=== PATIENT | male | born 1985 | race Caucasian/White ===

== ENCOUNTER → 2019-10-04 09:15 | Outpatient (CLI) | payer BC, SELFPAY ==
--- NOTE | 2019-10-04 09:26 | US_ITS ---
PROCEDURE: US ABDOMEN LIMITED CLINICAL INDICATION: RUQ PAIN Right upper quadrant pain with nausea and fever COMPARISON: No exams were available for comparison FINDINGS: PANCREAS: Unremarkable. No obvious mass or abnormal fluid collection. No ductal dilatation LIVER: No focal liver lesions demonstrated. Homogeneous echogenicity. No intrahepatic biliary ductal dilatation evident. There is appropriate direction of blood flow within a non dilated portal vein RIGHT KIDNEY: Unremarkable. Normal size and echogenicity. No hydronephrosis GALLBLADDER: No gallstones, gallbladder wall thickening, pericholecystic fluid, or biliary dilatation. Gallbladder is mildly distended at 10 by 3.7 cm IMPRESSION: Mildly distended gallbladder otherwise negative right upper quadrant ultrasound. No gallstones apparent Dictated by: Juan Antonio Pastor MD 10/04/2019 17:37 Electronically signed by Juan Antonio Pastor MD in [place] 10/04/2019 17:37
== END ==
PROVIDERS: PCP Family Medicine; Referring Provider Family Medicine; Visit Provider Family Medicine
DX: R10.11 Right upper quadrant pain (principal)
CPT/HCPCS: 76705

== ENCOUNTER → 2019-10-14 10:16 | Outpatient (CLI) | payer BC, SELFPAY ==
--- NOTE | 2019-10-14 10:18 | NM_ITS ---
PROCEDURE: NM HEPATOBILIARY WO PHARM CLINICAL INDICATION: RUQ PAIN COMPARISON: No exams were available for comparison TECHNIQUE: DOSE: 8.09 mCi technetium Choletec FINDINGS: Homogeneous activity is present within the hepatic parenchyma. There is delayed visualization of the gallbladder. The study is carried out for 3 hours the. The gallbladder is only visualized at 2 hours and 30 minutes. CCK could not be performed due to the faint activity in the gallbladder with most of the activity at that time within the small bowel. The small bowel is visualized by 15 minutes. IMPRESSION: 1. Delayed visualization of the gallbladder consistent with chronic inflammatory changes of the cystic duct 2. No evidence of common bile duct obstruction Dictated by: Juan Antonio Pastor MD 10/14/2019 17:43 Electronically signed by Juan Antonio Pastor MD in [place] 10/14/2019 17:43
== END ==
PROVIDERS: PCP Family Medicine; Visit Provider Family Medicine
DX: R10.11 Right upper quadrant pain (principal)
CPT/HCPCS: 78226; A9537

== ENCOUNTER → 2019-10-26 14:35 | Outpatient (CLI) | payer BC, SELFPAY ==
[2019-10-26 15:03] LABS: Basophils % 0.6 % (0.1-2.0); Eosinophils # 0.4 K/mm3 (0.0-0.4); Eosinophils % 4.9 % (0.1-12.0); Hemoglobin 14.2 g/dL (14.1-18.0); Lymphocytes # 2.3 K/mm3 (0.7-4.5); Lymphocytes % 30.9 % (10-50); Mean Corpuscular HGB Conc 32.3 g/dL (31.8-35.4); Mean Corpuscular Hemoglobin 29.4 pg (27.0-31.2); Mean Platelet Volume 8.5 fl (7.4-10.4); Monocytes # 0.5 K/mm3 (0.1-1.0); Monocytes % 6.9 % (1.7-9.3); Neutrophils # 4.1 K/mm3 (1.8-7.8); Neutrophils % 56.6 % (37.0-80.0); Platelet Count 283 K/mm3 (142-424); Red Blood Count 4.84 M/mm3 (4.60-6.20); Red Cell Distribution Width 12.3 % (11.5-17.5); White Blood Count 7.3 K/mm3 (4.8-10.8)
[2019-10-26 16:00] LABS: Alanine Aminotransferase 41 U/L (12-78); Albumin Level 4.2 gm/dL (3.4-5.0); Albumin/Globulin Ratio 1.4 (1.1-1.8); Alkaline Phosphatase 62 U/L (46-116); Anion Gap 10.5 mEq/L (5-15); Aspartate Amino Transferase 23 U/L (15-37); Bilirubin,Total 0.4 mg/dL (0.2-1.0); Blood Urea Nitrogen 12 mg/dL (7-18); Calcium 9.2 mg/dL (8.5-10.1); Carbon Dioxide 30 mmol/L (21.0-32.0); Chloride 104 mmol/L (98-107); Creatinine,Serum 0.97 mg/dL (0.70-1.30); Estimated Glomerular Filt Rate 89 ml/min (>60); GFR (African American) 108 ML/MIN (>60); Glucose 75 mg/dL (74-106); Potassium 4.5 mmoL/L (3.5-5.1); Sodium 140 mmol/L (136-145); Total Protein,Serum 7.2 gm/dL (6.4-8.2)
== END ==
PROVIDERS: Visit Provider Surgery
DX: R10.11 Right upper quadrant pain (principal)
CPT/HCPCS: 36415; 80053; 85025

== ENCOUNTER 2020-09-06 22:03 | Emergency (ER) | payer BC, SELFPAY ==
[2020-09-06 22:14] VITALS: BP 139/79; PULSE 57; RESP 16; TEMP 36.9; O2SAT 99; BMI 25.0
--- NOTE | 2020-09-06 22:23 | CT_ITS ---
PROCEDURE: CT ABDOMEN PELVIS W CON CLINICAL INDICATION: upper abd pain w/N/V Abdominal pain with nausea and vomiting COMPARISON: CT CT ABDOMEN PELVIS W CON from 09/28/2019 TECHNIQUE: IV Contrast: 75ML OPTIRAY 350 Oral Contrast None Axial images obtained with sagittal and coronal reformats. All CT scans at the facility use one or more dose reduction, viz: automated exposure control, ma/kV adjustment per patient size (including targeted exams where dose is matched to indication, i.e. head), or iterative reconstruction technique. FINDINGS: LOWER THORAX: The cluster of nodules is present in the left lower lobe posterior laterally unchanged. ABDOMEN & PELVIS: The liver, spleen, adrenal glands, the pancreas, and kidneys have an unremarkable appearance. There is a circum aortic left renal vein. There is a mild amount of retained colonic feces on the right. No intestinal obstruction or free air is evident. No evidence of appendicitis. There is mild thickening of the descending colon sigmoid and rectum which could be due to nondistention or colitis. The no evidence of diverticulitis. No acute bony anomaly. IMPRESSION: 1. Mild thickening of the descending colon, sigmoid colon and rectum which may only be due to nondistention. Mild colitis is also consideration. 2. Otherwise negative Dictated by: Juan Antonio Pastor MD 09/07/2020 06:55 Juan Antonio Pastor MD in [place] 09/07/2020 06:55
[2020-09-06 22:34] LABS: Basophils % 0.3 % (0.1-2.0); Eosinophils # 0.2 K/mm3 (0.0-0.4); Eosinophils % 1.5 % (0.1-12.0); Hematocrit 47.2 % (42.0-52.0); Hemoglobin 14.9 g/dL (14.1-18.0); Lymphocytes # 1.9 K/mm3 (0.7-4.5); Lymphocytes % 13.5 % (10-50); Mean Corpuscular HGB Conc 31.5 g/dL (31.8-35.4); Mean Corpuscular Hemoglobin 29.2 pg (27.0-31.2); Mean Corpuscular Volume 92.7 fl (80-94); Mean Platelet Volume 7.8 fl (7.4-10.4); Monocytes # 0.7 K/mm3 (0.1-1.0); Monocytes % 4.7 % (1.7-9.3); Neutrophils # 11.1 K/mm3 (1.8-7.8); Platelet Count 307 K/mm3 (142-424); Red Blood Count 5.09 M/mm3 (4.60-6.20); Red Cell Distribution Width 12.7 % (11.5-17.5); White Blood Count 13.9 K/mm3 (4.8-10.8)
[2020-09-06 22:38] LABS: Potassium 3.9 mmoL/L (3.5-5.1); Sodium 139 mmol/L (136-145)
[2020-09-06 22:39] LABS: Chloride 99 mmol/L (98-107)
[2020-09-06 22:40] LABS: Alanine Aminotransferase 20 U/L (12-78); Amylase 81 U/L (30-110); Anion Gap 15.9 mEq/L (5-15); Aspartate Amino Transferase 30 U/L (17-59); Blood Urea Nitrogen 13 mg/dl (9-20); Carbon Dioxide 28 mmol/L (22.0-30.0); Creatinine Clearance Estimated 124 mL/min (50-200); Estimated Glomerular Filt Rate 86 ml/min (>60); GFR (African American) 103 ML/MIN (>60)
[2020-09-06 22:41] LABS: Albumin Level 4.9 g/dl (3.5-5.0); Albumin/Globulin Ratio 1.6 (1.1-1.8); Alkaline Phosphatase 65 U/L (38-126); Bilirubin,Total 0.7 mg/dl (0.2-1.3); Calcium 9.7 mg/dl (8.4-10.2); Globulin 3.1 g/dL (1.3-3.2); Glucose 111 mg/dl (74-100); Lipase 175 U/L (23-300)
[2020-09-06 22:57] LABS: Erythrocyte Sedimentation Rate 1 mm/hr (0-15)
--- NOTE | 2020-09-06 23:14 | HMH.EDNVD ---
ED Disposition Clinical Impression: Abdominal pain Qualifiers: Abdominal location: epigastric Qualified Code(s): R10.13 - Epigastric pain Disposition: Home, Self-Care Condition on Discharge: Fair Instructions: DI for Acute Abdomen Additional Instructions: fluids and call pcp in am Referrals: Edgardo Pérez MD [Primary Care Provider] - - Critical Care Critical Care Time: No Attestation: On 09/06/20, the high probability of a clinically significant, sudden or life threatening deterioration of the following system(s) required my full and direct attention, intervention and personal management. The time I documented below is in addition to time spent performing reported procedures but includes the following listed in this critical care notation. Medical Decision Making - Medical Records Medical records reviewed: Yes: I reviewed the patient's medical records. - [place] Inquiry Pt receiving controlled substance: No Vital Signs: 09/06/20 22:14 Temperature 98.5 F Temperature Source Oral Pulse Rate [Right] 57 L Respiratory Rate 16 Blood Pressure [Right Arm] 139/79 Blood Pressure Mean [Right Arm] 99 Blood Pressure Source [Right Arm] Automatic Cuff Blood Pressure Position [Right Arm] Sitting 02 Sat by Pulse Oximetry 99 Oxygen Delivery Method Room Air - Lab Data Lab results reviewed: Yes: I reviewed the patient's lab results. Lab Results 09/06/20 22:20: WBC 13.9 H, RBC 5.09, Hgb 14.9, Hct 47.2, MCV 92.7, MCH 29.2, MCHC 31.5 L, RDW 12.7, Plt Count 307, MPV 7.8, Neut % (Auto) 80.0, Lymph % (Auto) 13.5, [place] % (Auto) 4.7, Eos % (Auto) 1.5, Baso % (Auto) 0.3, Neut # (Auto) 11.1 H, Lymph # (Auto) 1.9, [place] # (Auto) 0.7, Eos # (Auto) 0.2, Baso # (Auto) 0.0, ESR 1 09/06/20 22:20: Sodium 139, Potassium 3.9, Chloride 99, Carbon Dioxide 28, Anion Gap 15.9 H, BUN 13, Creatinine 1.00, Estimated Creat Clear 124, Estimated GFR 86, Est GFR ( Amer) 103, Glucose 111 H, Calcium 9.7, Total Bilirubin 0.7, AST 30, ALT 20, Alkaline Phosphatase 65, C-Reactive Protein 2.0, Total Protein 8.0, Albumin 4.9, Globulin 3.1, Albumin/Globulin Ratio 1.6, Amylase 81, Lipase 175 Result diagrams: 09/06/20 22:20 09/06/20 22:20 Orders (Tests/Meds): ED MEDICATIONS Generic Name Dose Route Start Last Admin Trade Name Freq PRN Reason Stop Dose Admin Sodium Chloride 1,000 mls @ 999 mls/hr 09/06/20 22:30 09/06/20 22:29 Sod Chlor 0.9% 1000ml Bag IV 09/06/20 23:30 999 mls/hr .Q1H1M JASON Administration Sodium Chloride 8 ml 09/06/20 22:23 Sodium Chloride 0.9% 10ml Vial IV 10/06/20 22:22 NEEDED PRN dilute pepcid Discontinued Medications Generic Name Dose Route Start Last Admin Trade Name Freq PRN Reason Stop Dose Admin Famotidine 20 mg 09/06/20 22:23 09/06/20 22:28 Famotidine 20mg/2ml Vial IV 09/06/20 22:24 20 mg ONCE ONE Administration Ketorolac Tromethamine 30 mg 09/06/20 22:23 09/06/20 22:28 Ketorolac 30mg/Ml Vial IV 09/06/20 22:24 30 mg ONCE ONE Administration Metoclopramide HCl 10 mg 09/06/20 22:23 09/06/20 22:28 Metoclopramide Hcl 10mg/2ml Vial IVP 09/06/20 22:24 10 mg ONCE ONE Administration Ondansetron HCl 4 mg 09/06/20 22:23 09/06/20 22:28 Ondansetron 4mg/2ml Vial IV 09/06/20 22:24 4 mg ONCE ONE Administration ORDERS Category Date Time Status CT abdomen pelvis w con Stat Cat Scan 09/06/20 22:23 Ordered - CT Data CT Scan: Abdomen, Pelvis Time Received: 23:[address] Reviewed: Yes: I have viewed the radiologist's interpretation Preliminary Findings: Abnormal (possible colitis ) - Reevaluation(s) Time: 23:46 Reevaluation #1: doubt colitis as no pain in colon area - declined admit Nausea/Vomiting/Diarrhea HPI - General Chief complaint: Abdominal Pain Stated complaint: Vomiting,ABD Pain Time Seen by Provider: 09/06/20 22:30 Mode of Arrival: Ambulatory Source of Information: Patient, Spouse, Medical Record Limitations: No Limit
[2020-09-06 23:37] VITALS: BP 127/62; PULSE 68; RESP 16; O2SAT 95
[2020-09-07 00:19] VITALS: BP 132/65; PULSE 61; RESP 16; TEMP 36.7; O2SAT 96
== END 2020-09-07 00:24 | disposition home or self-care (01) ==
PROVIDERS: Emergency Provider Emergency Medicine; PCP Family Medicine
DX: R10.13 Epigastric pain (principal); F17.210 Nicotine dependence, cigarettes, uncomplicated
CPT/HCPCS: 74177; 80053; 82150; 83690; 85025; 85651; 86140; 96365; 96375; 99283; J2405; Q9967

== ENCOUNTER 2020-12-30 19:11 | Emergency (ER) | payer BC, SELFPAY ==
[2020-12-30 19:20] VITALS: BP 123/74; PULSE 70; RESP 18; TEMP 37.1; O2SAT 98; BMI 25.2
--- NOTE | 2020-12-30 19:42 | HMH.EDUTC ---
[facility] [place] Clinical Impression: Upper respiratory infection, viral Disposition: Home, Self-Care Condition on Discharge: Good Instructions: DI for COVID-19 (Suspected or Confirmed ), How to Care for Someone with COVID-19, Preventing the Spread of Coronavirus Discharge Instructions Additional Instructions: No sign of a bacterial infection. Likely viral. Viruses can take 7-14 days to run their course. Nasal saline and bulb syringe or nose Marilyn to remove nasal drainage to help with nasal congestion. Hard to eat, drink, sleep with nasal congestion so important to keep this cleaned out. Monitor temp. Tylenol or Motrin as needed for pain or fever Encourage fluids, water, Gatorade, Powerade, Pedialyte if infant/toddler/child Warm salt water gargles Warm fluids Sore throat lozenges Sleep elevated Humidifier/vaporizer Your covid swab was sent . self isolate until covid test results are known to be negative Follow-up immediately for new or worsening symptoms or no noticeable improvement over the next 48-72 hours. Referrals: Edgardo Pérez MD [Primary Care Provider] - Time of Disposition: 19:54 Medical Decision Making - [place] Inquiry Pt receiving controlled substance: No Vital Signs: 12/30/20 19:20 Temperature 98.7 F Temperature Source Oral Pulse Rate [Right Brachial] 70 Respiratory Rate 18 Blood Pressure [Right Arm] 123/74 Blood Pressure Mean [Right Arm] 90 Blood Pressure Source [Right Arm] Automatic Cuff Blood Pressure Position [Right Arm] Sitting 02 Sat by Pulse Oximetry 98 Oxygen Delivery Method Room Air Orders (Tests/Meds): ORDERS Category Date Time Status Covid-19 Nasal PCR ([facility]) Routine Lab 12/30/20 19:13 Received [facility] [place] - General Chief complaint: [facility] Stated complaint: sore throat Time Seen by Provider: 12/30/20 19:42 Mode of Arrival: Ambulatory Source of Information: Patient Limitations: No Limitations Description of Symptoms (Recalled from Triage Doc. by RN): REQUESTING COVID TEST. C/O CHEST CONGESTION, FEVER, AND SNEEZING X 3 DAYS HEENT Symptoms (Recalled from RN notes): No Resp Symptoms (Recalled from RN notes): No Skin Symptoms (Recalled from RN notes): No MS Symptoms (Recalled from RN notes): No Functional Status (Recalled from RN notes): WNL - History of Present Illness Provider Complaint: 35 yr old male presents for sore throat, nasal congestion, and body aches for a few days and wants to make sure he does not have covid. - Related Data Home Medications Medication Instructions Recorded Confirmed No Known Home Medications 11/30/19 11/30/19 Allergies Allergy/AdvReac Type Severity Reaction Status Date / Time No Known Allergies Allergy Verified 11/30/19 10:03 - Worker's Comp Is this a Worker's Comp case?: No [facility] History - Hepatitis A Screen Drug use history?: No High risk sexual behaviors?: No History of sexually transmitted infection?: No Currently employed?: No Childcare worker?: No Do you have indoor plumbing?: Yes Do you have electricity?: Yes Attestation statement:: This patient has been screened for Hepatitis A risk factors. I have reviewed the patient's past medical history: Yes Medical History: Denies:: Cancer, Diabetes Mellitus Type 1, Diabetes Mellitus Type 2, Internal Pacemaker, MRSA, Seizures Other Medical History: Denies: Blood Transfusion Reaction Other Surgeries: Yes: No Previous Surgery, Cholecystectomy. No: Pacemaker Amputation: No Fractures: No - Social History Smoking Status: Current every day smoker Tobacco Type: cigarettes # Packs/Day (cigarettes): 1 Alcohol Intake: never Alcohol Intake Frequency:: a few times a month Substance Use Type: other Occupational Status: other Housing: house Household Members: spouse, family Family Hx:: No significant family history ROS Obtained: Yes Systems reviewed as appropriate & no additional complaints - Constitutional Constitutional: Reports system review
[2020-12-30 19:53] LABS: UTC Influenza A Antigen Negative (Negative)
[2020-12-30 19:54] VITALS: BP 123/74; PULSE 70; RESP 18; TEMP 37.1; O2SAT 98
[2020-12-30 19:54] LABS: UTC Influenza B Antigen Negative (Negative)
== END 2020-12-30 19:58 | disposition home or self-care (01) ==
PROVIDERS: Emergency Provider Nurse Practitioner Family; PCP Family Medicine
DX: Z20.822 Contact with and (suspected) exposure to COVID-19 (principal); J06.9 Acute upper respiratory infection, unspecified; F17.210 Nicotine dependence, cigarettes, uncomplicated
CPT/HCPCS: 87804; 99202; G0463; U0003

== ENCOUNTER 2022-09-15 02:48 | Emergency (ER) | payer BC, SELFPAY ==
[2022-09-15 02:49] VITALS: BP 148/63; PULSE 94; RESP 26; TEMP 36.8; O2SAT 97; BMI 25.7
--- NOTE | 2022-09-15 02:54 | XR_ITS ---
PROCEDURE INFORMATION: Exam: XR Chest Exam date and time: 09/15/2022 2:57 AM Age: 36 years old Clinical indication: Sternal or substernal pain; Additional info: Chest pain TECHNIQUE: Imaging protocol: Radiologic exam of the chest. Views: 2 views. COMPARISON: No relevant prior studies available. FINDINGS: Lungs: Mild underinflation. Minimal patchy opacity LEFT lung base. Pleural spaces: No significant pleural effusion. No pneumothorax. Heart/Mediastinum: No cardiomegaly. Bones/joints: No displaced fracture. Soft tissues: Unremarkable. Intraperitoneal space: Surgical clips within RIGHT upper quadrant. IMPRESSION: LEFT basilar atelectasis versus early pneumonia. Radiographic follow-up is recommended.
--- NOTE | 2022-09-15 03:00 | ECG_ITS ---
APPROVED REPORT Exam: Resting ECG HR:83 bpm ECG Measurements Heart Rate 83 AXES ID 138 P 64 QRSd 94 QRS 77 QT 339 T 72 QTc 379 Conclusion SINUS RHYTHM NORMAL ECG UNCONFIRMED REPORT Electronically signed by : Jem Schulte MD 09/15/2022 16:36:36
[2022-09-15 03:02] LABS: Basophils # 0.1 K/mm3 (0-0.2); Basophils % 0.6 % (0.1-2.0); Eosinophils # 0.2 K/mm3 (0.0-0.4); Eosinophils % 1.6 % (0.1-12.0); Hematocrit 47.1 % (42.0-52.0); Lymphocytes # 3.2 K/mm3 (0.7-4.5); Lymphocytes % 20.7 % (10-50); Mean Corpuscular HGB Conc 31.7 g/dL (31.8-35.4); Mean Corpuscular Hemoglobin 30.3 pg (27.0-31.2); Mean Corpuscular Volume 95.5 fl (80-94); Mean Platelet Volume 7.7 fl (7.4-10.4); Monocytes # 0.8 K/mm3 (0.1-1.0); Monocytes % 5.3 % (1.7-9.3); Neutrophils # 11.2 K/mm3 (1.8-7.8); Neutrophils % 71.8 % (37.0-80.0); Platelet Count 333 K/mm3 (142-424); Red Blood Count 4.94 M/mm3 (4.60-6.20); Red Cell Distribution Width 13.3 % (11.5-17.5); White Blood Count 15.6 K/mm3 (4.8-10.8)
--- NOTE | 2022-09-15 03:04 | HMH.EDGENADL ---
Discharge Plan Disposition Patient Disposition: Home, Self-Care Condition: Fair Prescriptions Prescriptions: New amoxicillin 500 mg capsule 1,000 mg PO TID Qty: 30 0RF ibuprofen 600 mg tablet 600 mg PO Q8H PRN (Reason: pain) Qty: 30 0RF Referrals Follow up/Referrals: Provider,Referral, MD [Primary Care Provider] - See instructions Activity Restrictions/Add. Instructions Additional Instructions/Restrictions: You have been evaluated for left-sided chest pain. Diagnosed with a pneumonia in the upper lobe. Your CT scan also showed pulmonary nodules. It is very important that you follow-up with your primary care doctor for repeat CT scan in the next few months. Take antibiotics as prescribed. Stay hydrated. Rest and fluids. Follow-up with your PCP in 1 to 2 days for symptom recheck. Return to the emergency department for any new or worsening symptoms, difficulty breathing, chest pain, other concerns Clinical Impressions Clinical Impression: Left upper lobe pneumonia, Chest pain Instructions Patient Instructions: DI for Pneumonia -- Adult, DI for Atypical Chest Pain Discharge ED Provider: Alma Rosa Kline Adult HPI General Chief complaint: Chest Pain Stated complaint: Chest Pain Time Seen by Provider: 09/15/22 02:53 Mode of Arrival: Ambulatory Source of Information: Patient Limitations: No Limitations History of Present Illness HPI narrative: 36-year-old male presenting to the emergency department with chest pain. Pain woke him from sleep just prior to arrival. Is described as sharp, located on the left side of the chest. Radiates slightly toward the epigastrium. Has been constant since onset. No radiation to the jaw, arm, back. It is located in the front of the chest. Hurts to take a deep breath. No associated nausea, diaphoresis. No numbness, weakness, tingling in his arms or legs. He has never had pain like this before. Denies recent exertional chest pain. Denies history of reflux or ulcers. [place] well throughout the day today. No medications prior to arrival. Related Data Previous Rx's Medication Instructions Recorded amoxicillin 500 mg capsule 1,000 mg PO TID #30 caps 09/15/22 ibuprofen 600 mg tablet 600 mg PO Q8H PRN pain #30 tabs 09/15/22 Allergies Allergy/AdvReac Type Severity Reaction Status Date / Time No Known Allergies Allergy Verified 11/30/19 10:03 [facility] Social History Smoking Status: Current every day smoker tobacco type: cigarettes packs per day: 1 second hand exposure: Yes alcohol intake: never substance use type: other current occupational status: other Travel in the last 8 weeks: None household members: spouse and family housing: house caffeine: Yes ROS Obtained: Yes All systems reviewed & no additional complaints except as documented Constitutional Constitutional: Reports body ache, Denies chills, Denies fever(s) and Denies headache(s) Eyes Eyes: Denies blurry vision and Denies change in vision ENT Ears, Nose, Mouth, and Throat: Denies headache(s), Denies neck pain, Denies sore throat and Denies throat swelling Cardiovascular Cardiovascular: Reports chest pain, Denies dyspnea, Denies irregular heart rhythm and Denies palpitations Respiratory Respiratory: Denies cough and Denies dyspnea Gastrointestinal Gastrointestingal: Denies abdominal pain, nausea or vomiting Musculoskeletal Musculoskeletal: Denies back pain, Denies myalgias, Denies neck pain and Denies numbness Integumentary/Breasts Skin/Breast: Denies rash Neurologic Neurologic: Denies headache(s) and Denies numbness Endocrine Endocrine: Denies palpitations Allergic/Immunologic Allergic/Immunologic: Denies throat swelling Physical Exam General General appearance: alert and in no apparent distress Head Head exam: atraumatic and normocephalic Eye Eye exam: Present normal appearance, PERRL and EOMI Neck Neck exam: Present normal inspection; Absent tenderness C
--- NOTE | 2022-09-15 03:06 | PC.NURSE ---
PT gone to RAD for CXR
[2022-09-15 03:07] LABS: MANUAL DIFFERENTIAL MANUAL DIFFERENTIAL (MANUAL DIFF)
[2022-09-15 03:08] LABS: Anion Gap 16.1 mEq/L (5-15); Blood Urea Nitrogen 13 mg/dl (9-20); Calcium 9.1 mg/dl (8.4-10.2); Carbon Dioxide 29 mmol/L (22.0-30.0); Chloride 96 mmol/L (98-107); Creatinine Clearance Estimated 124 mL/min (50-200); Estimated Glomerular Filt Rate 85 ml/min (>60); GFR (African American) 102 ML/MIN (>60); Glucose 128 mg/dl (74-100); Lipase 168 U/L (23-300); Potassium 4.1 mmoL/L (3.5-5.1); Sodium 137 mmol/L (136-145)
--- NOTE | 2022-09-15 03:12 | PC.NURSE ---
Pt back from RAD
[2022-09-15 03:21] LABS: Troponin I < 0.01 ng/ml (0.00-0.034)
[2022-09-15 03:33] LABS: Eosinophils % 1 % (0-3); Lymphocytes % 17 % (10-50); Monocytes % 2 % (2-9); Neutrophils % 76 % (42-76); Platelet Estimate Normal; RBC Morphology Normal; Total Cells Counted 100
--- NOTE | 2022-09-15 03:44 | PC.NURSE ---
Dr. Kline at
--- NOTE | 2022-09-15 03:45 | CT_ITS ---
PROCEDURE INFORMATION: Exam: CTA Chest With Contrast Exam date and time: 09/15/2022 4:16 AM Age: 36 years old Clinical indication: Sternal or substernal pain; Additional info: Pain with inspiration, dyspnea TECHNIQUE: Imaging protocol: Computed tomographic angiography of the chest with contrast. 3D rendering (Not supervised by radiologist): MIP and/or 3D reconstructed images were created by the technologist. Radiation optimization: All CT scans at this facility use at least one of these dose optimization techniques: automated exposure control; mA and/or kV adjustment per patient size (includes targeted exams where dose is matched to clinical indication); or iterative reconstruction. Contrast material: ISOVUE 370; Contrast volume: 70 ml; Contrast route: INTRAVENOUS (IV); COMPARISON: CR XR CHEST 2V 09/15/2022 2:57 AM FINDINGS: Pulmonary arteries: No definite pulmonary embolism. Aorta: Unremarkable. No aneurysm. Lungs: Minimal atelectasis/scarring. Few areas of mucous plugging within LEFT upper and lower lobes. Mild focal patchy/ confluent groundglass/alveolar opacities within lingular segment of LEFT upper lobe. Few calcified granulomas. Few noncalcified nodules and/or focal scarring, up to 0.3 cm. Pleural spaces: No significant pleural effusion. No pneumothorax. Heart: No cardiomegaly. No pericardial effusion. Lymph nodes: Calcified hilar lymph nodes. Spleen: Several calcifications. Bones/joints: No acute fracture. Soft tissues: Minimal gynecomastia. Small calcification or clip within LEFT axilla. IMPRESSION: 1. No definite CT evidence of pulmonary embolism. 2. Probable LEFT upper lobe pneumonia. Followup to resolution to exclude underlying pathology. 3. Pulmonary nodules. For patients at low risk (minimal or absent history of smoking and of other known risk factors), no routine follow-up is indicated. For patients at high risk (history of smoking or of other known risk factors), consider optional CT at 12 months. (james Dunaway al., Fleischner Society, 2017)
[2022-09-15 04:00] VITALS: BP 116/53; PULSE 88; RESP 22; O2SAT 97
[2022-09-15 04:30] VITALS: BP 129/63; PULSE 89; RESP 16; O2SAT 98
--- NOTE | 2022-09-15 04:33 | PC.NURSE ---
pt refused to have covid/flu test
[2022-09-15 05:12] VITALS: BP 129/63; PULSE 89; RESP 18; TEMP 36.6; O2SAT 99
[2022-09-15 05:39] LABS: Troponin I < 0.01 ng/ml (0.00-0.034)
== END 2022-09-15 05:51 | disposition home or self-care (01) ==
PROVIDERS: Emergency Provider Emergency Medicine
DX: J18.1 Lobar pneumonia, unspecified organism (principal); F17.210 Nicotine dependence, cigarettes, uncomplicated; Z79.1 Long term (current) use of non-steroidal anti-inflammatories (NSAID)
CPT/HCPCS: 71046; 71275; 80048; 83690; 84484; 85007; 85025; 93005; 99285; Q9967

== ENCOUNTER 2022-10-17 09:25 | Emergency (ER) | payer BC, SELFPAY ==
[2022-10-17 11:20] VITALS: BP 113/76; PULSE 102; RESP 22; TEMP 37.2; O2SAT 100; BMI 25.8
--- NOTE | 2022-10-17 11:27 | EXP.UTC ---
Discharge Plan Disposition Patient Disposition: Home, Self-Care Condition: Good Prescriptions Prescriptions: New ttienbrlixnlyer-ruyywnsaj-IV [Bromfed DM] 2-30-10 mg/5 mL Syrup 5 ml PO Q6H PRN (Reason: Cough) Qty: 240 0RF oseltamivir [Tamiflu] 75 mg capsule 75 mg PO BID Qty: 10 0RF Referrals Follow up/Referrals: Dante Germain MD [Primary Care Provider] - See instructions Activity Restrictions/Add. Instructions Additional Instructions/Restrictions: Drink plenty of fluids. Take tylenol or ibuprofen for pain or fever. Take the medications as directed. Follow up with your regular doctor. GO TO THE ER FOR ANY WORSENING SYMPTOMS Clinical Impressions Clinical Impression: Influenza A Instructions Patient Instructions: DI for Influenza -- Adult, Oseltamivir Discharge ED Provider: Eleazar Crow [facility] [place] General Stated complaint: fever Time Seen by Provider: 10/17/22 11:26 History of Present Illness Provider Complaint: He states that for the past 2 days he has had fever, chills, sinus congestion and he has felt bad. Related Data Previous Rx's Medication Instructions Recorded hgkissuksgoexvx-utiuuejynjstqnb-EU 5 ml PO Q6H PRN Cough #240 mL 10/17/22 2 mg-30 mg-10 mg/5 mL oral syrup (Bromfed DM) oseltamivir 75 mg capsule (Tamiflu) 75 mg PO BID #10 caps 10/17/22 Allergies Allergy/AdvReac Type Severity Reaction Status Date / Time No Known Allergies Allergy Verified 11/30/19 10:03 [facility] Medical History Kidney stone Surgical History History of cholecystectomy Social History Smoking Status: Current every day smoker tobacco type: cigarettes packs per day: 1 second hand exposure: Yes alcohol intake: never substance use type: other current occupational status: other Travel in the last 8 weeks: None household members: spouse and family housing: house caffeine: Yes ROS Obtained: Yes All systems reviewed & no additional complaints except as documented Constitutional Constitutional: Reports chills and Reports fever(s) Eyes Eyes: Denies eye discharge ENT Ears, Nose, Mouth, and Throat: Reports as per HPI Cardiovascular Cardiovascular: Denies chest pain Respiratory Respiratory: Denies chest congestion and Reports cough Gastrointestinal Gastrointestingal: Reports nausea; Denies abdominal pain, constipation, cramping, diarrhea or vomiting Musculoskeletal Musculoskeletal: Denies arthralgias Integumentary/Breasts Skin/Breast: Denies rash Neurologic Neurologic: Denies paresthesias Physical Exam General General appearance: alert and in no apparent distress Head Head exam: atraumatic, normocephalic and normal inspection Eye Eye exam: Present normal appearance, PERRL and EOMI ENT ENT exam: Present normal exam, normal oropharynx, mucous membranes moist, TM's normal bilaterally and normal external ear exam Neck Neck exam: Present normal inspection, full ROM and trachea midline; Absent meningismus or lymphadenopathy Chest Chest inspection: Present normal inspection and symmetric chest wall rise; Absent tenderness Respiratory Respiratory exam: Present normal lung sounds bilaterally; Absent respiratory distress Cardiovascular Cardiovascular exam: Present regular rate and normal rhythm; Absent JVD Abdominal Exam Abdominal exam: Present soft and normal bowel sounds; Absent distention, tenderness or guarding Extremities Exam Extremities exam: Present normal inspection, full ROM and normal capillary refill; Absent calf tenderness Back Exam Back exam: Present normal inspection; Absent tenderness Neurological Exam Neurological exam: Present alert and oriented X3 Psychiatric Psychiatric exam: Present normal affect and normal mood Skin Skin exam: Present warm, dry, intact and normal color Lymphatic Lymphat
[2022-10-17 11:38] VITALS: BP 113/76; PULSE 102; RESP 22; TEMP 37.2; O2SAT 100
[2022-10-17 11:44] LABS: UTC Influenza A Antigen Positive (Negative); UTC Strep Screen (Rapid) Negative (Negative)
[2022-10-17 11:45] LABS: UTC Influenza B Antigen Negative (Negative)
== END 2022-10-17 12:25 | disposition home or self-care (01) ==
PROVIDERS: Emergency Provider Nurse Practitioner Family; PCP Family Medicine
DX: J10.1 Influenza due to other identified influenza virus with other respiratory manifestations (principal)
CPT/HCPCS: 87804; 87880; 99212; G0463